=== PATIENT | female | born 1975 | race Caucasian/White ===

== ENCOUNTER 2017-04-11 16:55 | Emergency (ER) | payer BC ==
[~2017-04-11] VITALS: Ht 149.9 cm; Wt 67.5 kg
[~2017-04-11 16:55] MED LIST: NITR50CA38 PO
[2017-04-11 16:59] VITALS: Ht 149.9 cm; Wt 67.5 kg
[2017-04-11 18:43] LABS: BASOPHILS % 0.3 % (0.0-2.0); EOSINOPHILS # 0.1 10^3/ul (0.0-0.5); EOSINOPHILS % 0.7 % (0.0-7.0); HEMATOCRIT 39.6 % (37.0-47.0); HEMOGLOBIN 13.7 g/dl (12.0-16.0); LYMPHOCYTES # 3.1 10^3/ul (0.8-2.9); LYMPHOCYTES % 35.6 % (15.0-51.0); MEAN CORPUSCULAR HEMOGLOBIN 32.7 pg (29.0-33.0); MEAN CORPUSCULAR HGB CONC 34.6 g/dl (32.0-37.0); MEAN CORPUSCULAR VOLUME 94.5 fl (82.0-101.0); MEAN PLATELET VOLUME 9.2 fl (7.4-10.4); MONOCYTE # 0.6 10^3/ul (0.3-0.9); NEUTROPHIL # 4.8 10^3/ul (1.6-7.5); NEUTROPHILS % 56.1 % (39.0-77.0); PLATELET COUNT 251 10^3/UL (140-415); RED BLOOD COUNT 4.19 10^6/ul (4.20-5.40); RED CELL DISTRIBUTION WIDTH 12.2 % (11.5-14.5); WHITE BLOOD COUNT 8.6 10^3/ul (4.8-10.8)
--- NOTE | 2017-04-11 19:00 | RADRPT ---
PROCEDURE: Obstetrical ultrasound CLINICAL INDICATION: sent by clinic for heart tones TECHNIQUE: Multiple sonographic images of the pelvis were obtained. The images were reviewed on a PACS workstation. COMPARISON: None FINDINGS: The cervix is not well visualized. There is a single intrauterine gestation. No heart tones are detected. There is a vertex presentation. The placenta is anterior and fundal in location. There is no evidence for an abruption or placenta p revia. There is a subjectively normal amount of amniotic fluid. Measurements were made in order to determine age. The results are as follows (cm): BPD =2.80 HC =10.12 AC =9.26 FL =1.54 Estimated gestational age by ultrasound of approximately 15 weeks, 0 days. The estimated date of delivery by ultrasound is 10/03/2017. EFW = 111 grams Bilateral ovaries are not visualized. There are no abnormal adnexal masses. IMPRESSION: A single intrauterine gestation is identified which would be consistent with a gestational age of 15 weeks, 0 days. No heart tones are detected consistent with demise. Continued sonograp hic follow-up is recommended. These findings were discussed with Jeri Wiley (Sofia DANIELS) over the phone on 04/11/2017 at 7 :00 PM . RPTAT: EE Physician Lorenzo Date Time Electronically viewed and signed by Physician Lorenzo on 04/11/2017 19:00 /
[2017-04-11 19:06] LABS: ADD UMIC YES; UR ASCORBIC ACID NEGATIVE (NEGATIVE); UR BACTERIA MODERATE /HPF (NONE SEEN); UR BILIRUBIN (Dip) NEGATIVE (NEGATIVE); UR BLOOD (Dip) 1+ mg/dL (NEGATIVE); UR CLARITY CLOUDY (CLEAR); UR COLOR YELLOW (YELLOW); UR GLUCOSE (Dip) NEGATIVE (NEGATIVE); UR KETONES (Dip) TRACE mg/dL (NEGATIVE); UR LEUKOCYTE ESTERASE (Dip) 3+ Leu/ul (NEGATIVE); UR NITRITE (Dip) NEGATIVE (NEGATIVE); UR RBC 22 /HPF (0-5); UR SPECIFIC GRAVITY (Dip) 1.006 (1.003-1.030); UR SQUAMOUS EPITHELIAL CELL FEW /HPF (FEW); UR TOTAL PROTEIN (Dip) NEGATIVE (NEGATIVE); UR UROBILINOGEN (Dip) NEGATIVE (NEGATIVE)
--- NOTE | 2017-04-11 19:08 | ERD ---
ER Documentation Chief Complaint Date/Time DATE: 04/11/17 TIME: 19:06 Chief Complaint SENT BY FOR HEART TONE CHECK HPI This 41-year-old female presents the emergency department today for further evaluation after being sent by her clinic today. Patient is here with her sister who states that they heard heart tones but there was "gases". Denies any abdominal pain, dysuria, fevers or chills, nausea vomiting, or vaginal bleeding.. ROS All systems reviewed and are negative except as per history of present illness. Medications Home Meds Active Scripts Cephalexin* (Keflex*) 500 Mg Capsule, 500 MG PO QID for 7 Days, CAP Prov:JERI RAHAMN PA-C 04/11/17 Acetaminophen* (Tylophen*) 500 Mg Capsule, 1 CAP PO Q6H Y for PAIN AND OR ELEVATED TEMP, #30 CAP Prov:JERI RAHMAN PA-C 04/11/17 Reported Medications Nitrofurantoin Macrocrystal* (Macrodantin*) 50 Mg Cap, 100 MG PO BID 05/03/13 Allergies Allergies: Coded Allergies: No Known Allergy (Unverified , 05/03/13) PMhx/Soc History of Surgery: No Anesthesia Reaction: No Hx Neurological Disorder: No Hx Respiratory Disorders: No Hx Cardiac Disorders: No Hx Psychiatric Problems: No Hx Miscellaneous Medical Probl: No Hx Alcohol Use: No Hx Substance Use: No Hx Tobacco Use: No Physical Exam Vitals Vital Signs Date Time Temp Pulse Resp B/P Pulse Ox O2 Delivery O2 Flow Rate FiO2 04/11/17 16:59 98.6 82 18 129/65 98 Physical Exam Const: No acute distress Head: Atraumatic Eyes: Normal Conjunctiva ENT: Normal External Ears, Nose and Mouth. Neck: Full range of motion..~ No meningismus. Resp: Clear to auscultation bilaterally Cardio: Regular rate and rhythm, no murmurs Abd: Soft, non tender, non distended. Normal bowel sounds Skin: No petechiae or rashes Back: No midline or flank tenderness Ext: No cyanosis, or edema Neur: Awake and alert Psych: Normal Mood and Affect Result Diagram: 04/11/17 1308 Results 24 hrs Laboratory Tests Test 04/11/17 18:27 04/11/17 18:47 White Blood Count 8.610^3/ul Red Blood Count 4.1910^6/ul Hemoglobin 13.7g/dl Hematocrit 39.6% Mean Corpuscular Volume 94.5fl Mean Corpuscular Hemoglobin 32.7pg Mean Corpuscular Hemoglobin Concent 34.6g/dl Red Cell Distribution Width 12.2% Platelet Count 84016^3/UL Mean Platelet Volume 9.2fl Neutrophils % 56.1% Lymphocytes % 35.6% Monocytes % 7.0% Eosinophils % 0.7% Basophils % 0.3% Nucleated Red Blood Cells % 0.0/100WBC Neutrophils # 4.810^3/ul Lymphocytes # 3.110^3/ul Monocytes # 0.610^3/ul Eosinophils # 0.110^3/ul Basophils # 0.010^3/ul Nucleated Red Blood Cells # 0.010^3/ul Beta HCG, Quantitative 37413.0mIU/ml Urine Color YELLOW Urine Clarity CLOUDY Urine pH 6.0 Urine Specific [place] 1.006 Urine Ketones TRACEmg/dL Urine Nitrite NEGATIVEmg/dL Urine Bilirubin NEGATIVEmg/dL Urine Urobilinogen NEGATIVEmg/dL Urine Leukocyte Esterase 3+Jerson/ul Urine Microscopic RBC 22/HPF Urine Microscopic WBC 90/HPF Urine Squamous Epithelial Cells FEW/HPF Urine Bacteria MODERATE/HPF Urine Hemoglobin 1+mg/dL Urine Glucose NEGATIVEmg/dL Urine Total Protein NEGATIVEmg/dl DIAGNOSTIC IMAGING REPORT Patient: EDY WAGNER : 1975 Age: 41 Sex: F MR #: [id number] DOS: 04/11/17 0000 Ordering MD: JERI RAHMAN PA-C Location: [facility] Room/Bed: PROCEDURE: Obstetrical ultrasound CLINICAL INDICATION: sent by clinic for heart tones TECHNIQUE: Multiple sonographic images of the pelvis were obtained. The images were reviewed on a PACS workstation. COMPARISON: None FINDINGS: The cervix is not well visualized. There is a single intrauterine gestation. No heart tones are detected. There is a vertex presentation. The placenta is anterior and fundal in location. There is no evidence for an abruption or placenta previa. There is a subjectively normal amount of amniotic fluid. Measurements were made in order to determine age. The results are as follows (cm): BPD = 2.80 HC = 10.12 AC = 9.26 FL = 1.54 Estimated gestational age by ultrasound of approximately 15 weeks, 0 days. The estimated date of delivery by ultrasound is 10/03/2017. EFW = 111 grams Bilateral ovaries are not visualized. There are no abnormal adnexal masses. IMPRESSION: A single intrauterine gestation is identified which would be consistent with a gestational age of 15 weeks, 0 days. No heart tones are detected consistent with demise. Continued sonographic follow-up is recommended. These findings were discussed with Jeri Rahman (Sofia DANIELS) over the phone on 04/11/2017 at 7:00 PM . RPTAT: EE Guille De La Cruz, Physician Date Time Electronically viewed and signed by Guille De La Cruz Physician on 04/11/2017 19:00 RA/ CC: JERI RAHMAN PA-C Procedures/MDM This is a A1 41-year-old female who presents to the emergency department today after being referred by her primary care clinic Dr. Mahmood office for evaluation of heart activity. Patient states she is approximately 17 weeks given this I did obtain a complete OB workup. Patient did bring a referral piece of paper that said to evaluate the patient for heart activity. Patient had indicated that they did hear heart activity but the referral piece of paper is stating otherwise . Laboratory work shows no elevated white blood cell count. She is not anemic. UA shows 3+ leukocyte Estrace and 90 white blood cells. Patient will begin a prescription for Keflex for urinary tract infection. Beta quant hCG 71209.0 Rh status A + Ultrasound shows a single intrauterine gestation identified which be consistent with a gestational age of 15 weeks and 0 days. There are no heart tones detected consistent with demise. There are no abnormal adnexal masses. There is no evidence for an abruption or placenta previa. There is a normal amount of amniotic fluid. Patient symptoms at this time most consistent with no heart tones and likely demise. Have explained this to the patient. Patient is afebrile and otherwise well-appearing. I have low suspicion for ectopic , tubo ovarian abscess, ovarian torsion. I have explained the results to the patient. I have explained to the patient that they need to follow-up with Dr. Mahmood next week as planned. I have explained to the patient that they may begin to have abdominal pain,cramping, or vaginal bleeding. Patient understood At this time the patient is stable for discharge and outpatient management. Patient should follow up with their PCP in the next 1-2 days. They may return to the emergency department sooner for any persistent or worsening of symptoms. Patient understood and agreed with the plan. Departure Diagnosis: Primary Impression: Encounter for laboratory test Additional Impression: demise Condition: Fair JERI RAHMAN PA-C Apr 11, 2017 19:08
[2017-04-11] MEDS ORDERED: ACET500C5 PO (20:18)
[2017-04-11] MEDS ORDERED: CEPH-443 PO (20:19)
== END 2017-04-11 20:31 | disposition home or self-care (01) ==
LOC: FTE 16:55
DX: O02.1 Missed abortion (principal)
CPT/HCPCS: 36415; 76805; 81001; 84702; 85025; 86900; 86901

== ENCOUNTER 2018-04-17 18:09 | Outpatient (CLI) | END 2018-04-17 20:48 | disposition home or self-care (01) ==

== ENCOUNTER 2018-04-19 17:00 | Outpatient (CLI) | END 2018-04-19 19:58 | disposition home or self-care (01) ==

== ENCOUNTER 2018-04-21 19:40 | Outpatient (CLI) | END 2018-04-21 23:30 | disposition home or self-care (01) ==

== ENCOUNTER 2018-04-24 19:44 | Outpatient (CLI) | END 2018-04-24 21:36 | disposition home or self-care (01) ==

== ENCOUNTER 2018-04-28 20:01 | Outpatient (CLI) | END 2018-04-28 21:23 | disposition home or self-care (01) ==

== ENCOUNTER 2018-05-01 20:01 | Outpatient (CLI) | END 2018-05-01 22:35 | disposition home or self-care (01) ==

== ENCOUNTER 2018-05-05 20:02 | Outpatient (CLI) | END 2018-05-05 21:39 | disposition home or self-care (01) ==

== ENCOUNTER 2018-05-08 19:51 | Outpatient (CLI) | END 2018-05-08 21:47 | disposition home or self-care (01) ==

== ENCOUNTER 2018-05-12 20:00 | Outpatient (CLI) | END 2018-05-12 23:35 | disposition home or self-care (01) ==

== ENCOUNTER 2018-05-15 13:27 | Outpatient (CLI) | END 2018-05-15 15:25 | disposition home or self-care (01) ==

== ENCOUNTER 2018-05-19 16:38 | Outpatient (CLI) | END 2018-05-19 18:25 | disposition home or self-care (01) ==

== ENCOUNTER 2018-05-22 18:46 | Outpatient (CLI) | END 2018-05-22 21:16 | disposition home or self-care (01) ==

== ENCOUNTER 2018-05-26 18:31 | Outpatient (CLI) | END 2018-05-26 23:41 | disposition home or self-care (01) ==

== ENCOUNTER 2018-05-29 12:48 | Outpatient (CLI) | END 2018-05-29 15:13 | disposition home or self-care (01) ==

== ENCOUNTER 2018-06-02 23:00 | Inpatient (IN) | END 2018-06-06 15:51 | disposition home or self-care (01) | DRG 765 ==